=== PATIENT | male | born 1985 | race Caucasian/White ===

== ENCOUNTER 2024-05-18 08:00 | Emergency (ER) | payer OTHER, SELFPAY ==
[2024-05-18] VITALS (16 sets, daily range): BP systolic 135–142; BP diastolic 87–95; PULSE 69–90; TEMP 36.8; O2SAT 95–100; BMI 29.3
--- NOTE | 2024-05-18 08:19 | ECG_ITS ---
[facility] Test Date: 2024-05-18 Pat Name: ROBERT HEATH Department: Room: - Gender: Male Store Mgr: : 1985 Requested By: Order Number: [id number] Reading MD: BAM TOLLIVER Measurements Intervals [place] Rate: 71 P: 50 TN: 132 QRS: 92 QRSD: 120 T: 67 QT: 386 QTc: 409 Interpretive Statements 1100 Sinus rhythm 2320 Nonspecific intraventricular conduction delay 7102 Moderate right axis deviation 9130 borderline ECG No previous ECG available for comparison Electronically Signed On 05-18-2024 22:15:52 EDT by BAM TOLLIVER
--- NOTE | 2024-05-18 08:30 | ED.UPPEXIN1 ---
HPI HPI - Extremity Injury (Upper) General Chief Complaint: Extremity Injury, Upper Stated Complaint: BWC - UPPER EXTREMITY INJURY/PAIN R ARM Time Seen by Provider: 05/18/24 08:10 Source: patient Mode of arrival: walk-in Limitations: no limitations History of Present Illness HPI narrative: 38-year-old male presents after being shocked by electricity at work. He was using a power buffer and the extension cord became disconnected and his right hand got shocked. Apparently there was some wet floor nearby as well. He states he has tingling going up his arm and he has trouble bending his arm. No chest pain or palpitations and there is no syncope or other injury. This happened about an hour ago. Related Data Home Medications ?Medication ?Instructions ?Recorded ?Confirmed ergocalciferol (vitamin D2) 1,250 1,250 mcg PO QWEEK 05/18/24 05/18/24 mcg (50,000 unit) capsule hydroxyzine HCl 25 mg tablet 25 mg PO TID PRN anxiety 05/18/24 05/18/24 omeprazole 20 mg capsule,delayed 20 mg PO DAILY 05/18/24 05/18/24 release ondansetron 4 mg disintegrating 4 mg PO DAILY 05/18/24 05/18/24 tablet trazodone 50 mg tablet 50 mg PO DAILY PRN sleep 05/18/24 05/18/24 venlafaxine 150 mg 150 mg PO QAM 05/18/24 05/18/24 capsule,extended release 24 hr Allergies Allergy/AdvReac Type Severity Reaction Status Date / Time No Known Drug Allergies Allergy Verified 05/18/24 08:07 Opioid HPI Opioid Management Most Recent Pain and Opioid Data: No Data to Display Review of Systems ROS Narrative A ten point review of systems is negative except as noted above. Exam Narrative Exam Narrative: Nurses note and vital signs reviewed and patient is not hypoxic. General: The patient appears well and in no apparent distress. Patient is resting comfortably on cart. Skin: Warm, dry, no pallor noted. There is no rash noted. Head: Normocephalic, atraumatic Eye: Normal conjunctiva, no drainage Ears, Nose, Mouth, and Throat: oral mucosa is moist. Nares patent. Cardiovascular: Regular Rate and Rhythm Respiratory: Patient is in no distress, no accessory muscle use, lungs are clear to auscultation, no wheezing, rales or rhonchi Back: non-tender, no CVA tenderness bilaterally to percussion. GI: Normal bowel sounds, no tenderness to palpation, no masses appreciated. No rebound, guarding, or rigidity noted. Musculoskeletal: The right arm has no burn chawla or erythema. Fingers have good range of motion and he is reluctant to bend his elbow. There is no swelling in the arm. Neurological: A&O x4, normal speech Psychiatric: Cooperative Constitutional Vital Signs, click to edit/add: Last Vital Signs Temp 98.2 F 05/18/24 08:07 Pulse 90 05/18/24 09:07 Resp 18 05/18/24 09:07 BP 135/87 05/18/24 09:07 Pulse Ox 99 05/18/24 08:07 O2 Del Method Room Air 05/18/24 08:07 Course Vital Signs Vital signs: Vital Signs Temperature 98.2 F 05/18/24 08:07 Pulse Rate 83 05/18/24 08:07 Respiratory Rate 16 05/18/24 08:07 Blood Pressure 142/94 H 05/18/24 08:07 Pulse Oximetry 99 05/18/24 08:07 Oxygen Delivery Method Room Air 05/18/24 08:07 Temperature 98.2 F 05/18/24 08:07 Pulse Rate 90 05/18/24 09:07 Respiratory Rate 18 05/18/24 09:07 Blood Pressure 135/87 05/18/24 09:07 Pulse Oximetry 99 05/18/24 08:07 Oxygen Delivery Method Room Air 05/18/24 08:07 MDM - Extremity Injury (Upper) MDM Narrative Medical decision making narrative: The patient is feeling much better now and is able to move his arm without difficulty. EKG on my interpretation shows no acute findings and he has had no dysrhythmia and he is able to be discharged home. Treatment diagnosis and follow-up were discussed with the patient Differential Diagnosis Differential diagnosis: Likely other (Electric shock, dysrhythmia) ECG Data Attestation: I personally reviewed and interpreted this ECG as follows: (EKG on my interpretation shows sinus rhythm without acute change) Discharge Plan Discharge Stand Alone Forms: Portal Instructions Chief Complaint: Extremity Injury, Upper Clinical Impression: Electric shock Patient Disposition: Home, Self-Care Time of Disposition Decision: 10:13 Condition: Good Mode of Transportation: Private Vehicle Prescriptions / Home Meds: No Action omeprazole 20 mg capsule,delayed release(DR/EC) 20 mg PO DAILY ondansetron 4 mg tablet,disintegrating 4 mg PO DAILY ergocalciferol (vitamin D2) 1,250 mcg (50,000 unit) capsule 1,250 mcg PO QWEEK hydroxyzine HCl 25 mg tablet 25 mg PO TID PRN (Reason: anxiety) trazodone 50 mg tablet 50 mg PO DAILY PRN (Reason: sleep) venlafaxine 150 mg capsule,extended release 24hr 150 mg PO QAM Print Language: Arabic Instructions: Electrical [place] in Adults (ED) Referrals: Vandana Kelly NP [Primary Care Provider] - 1 week
== END 2024-05-18 10:34 | disposition home or self-care (01) ==
PROVIDERS: Emergency Provider Emergency Medicine; PCP Nurse Practitioner Family
DX: T75.4XXA Electrocution, initial encounter (principal); W86.8XXA Exposure to other electric current, initial encounter
CPT/HCPCS: 93005; 99283

== ENCOUNTER 2024-12-22 09:09 | Emergency (ER) | payer OTHER, SELFPAY ==
[2024-12-22 09:14] VITALS: BP 136/87; PULSE 85; TEMP 36.6; O2SAT 97; BMI 31.0
--- NOTE | 2024-12-22 09:22 | XR_ITS ---
The [address] [address] Patient Name: ROBERT LOGAN MRN: [id number] date: 1985 Sex: M Assigned Patient Location: ER Current Patient Location: ER Accession/Order Number: [id number] Exam Date: 12/22/2024 09:28 Report Date: 12/22/2024 09:46 At the request of: VENKAT MATUTE Procedure: XR lumbar spine 2-3V EXAMINATION: XR lumbar spine 2-3V HISTORY: fall COMPARISON: No relevant comparison available. FINDINGS: BONES: Straightening of the normal lordotic curvature, but otherwise normal height and alignment of the vertebral bodies; no fracture or spondylolisthesis. Mild degenerative facet arthropathy L3-4 through L5-S1. DISC SPACES: Moderate narrowing L4-5. PARASPINOUS: Negative. No paraspinous abnormality is seen. OTHER: Negative. XR/XR lumbar spine 2-3V IMPRESSION: 1. No appreciable acute abnormality. 2. L5-S1 moderate disc space narrowing/degenerative disc disease. Electronically authenticated by: CHAPINCITO ROBERTSON Date: 12/22/2024 09:46
--- NOTE | 2024-12-22 09:23 | ED.GENADUL1 ---
HPI HPI - General Adult General Chief complaint: Fall Stated complaint: FALL - WORK 12/22/24 HEAD/BACK PAIN Time Seen by Provider: 12/22/24 09:12 Source: patient Mode of arrival: walk-in Limitations: no limitations History of Present Illness HPI narrative: 39-year-old male presents to the emergency department for injury to his lower back. Just before coming into the emergency department he was at work and he slipped and he fell backwards and landed on his lower back and hit the back of his head. No LOC or vomiting or weakness or numbness. He has no neck pain. He landed on an area that had wax stripper applied to it and it got on his lower back through his clothing. He has a burning sensation in this area. Tetanus status is up-to-date. Related Data Home Medications ?Medication ?Instructions ?Recorded ?Confirmed ergocalciferol (vitamin D2) 1,250 1,250 mcg PO QWEEK 05/18/24 05/18/24 mcg (50,000 unit) capsule hydroxyzine HCl 25 mg tablet 25 mg PO TID PRN anxiety 05/18/24 05/18/24 omeprazole 20 mg capsule,delayed 20 mg PO DAILY 05/18/24 05/18/24 release ondansetron 4 mg disintegrating 4 mg PO DAILY 05/18/24 05/18/24 tablet trazodone 50 mg tablet 50 mg PO DAILY PRN sleep 05/18/24 05/18/24 venlafaxine 150 mg 150 mg PO QAM 05/18/24 05/18/24 capsule,extended release 24 hr Previous Rx's ?Medication ?Instructions ?Recorded triamcinolone acetonide 0.1 % 1 applic topical BID #80 grams 12/22/24 topical cream Allergies Allergy/AdvReac Type Severity Reaction Status Date / Time No Known Drug Allergies Allergy Verified 12/22/24 09:19 Opioid HPI Opioid Management Most Recent Opioid Data: Last Pain Scale 6 12/22/24 09:15 12/22/24 Review of Systems ROS Narrative A ten point review of systems is negative except as noted above. PFSH PFSH Social History Little interest or pleasure in doing things: not at all Feeling down, depressed, or hopeless: not at all Exam Narrative Exam Narrative: Nurses note and vital signs reviewed and patient is not hypoxic. General: The patient appears well and in no apparent distress. Patient is resting comfortably on cart. Skin: Warm, dry, no pallor noted. There is no rash noted. Head: Normocephalic, atraumatic; C-spine nontender Eye: Normal conjunctiva, no drainage Ears, Nose, Mouth, and Throat: oral mucosa is moist. Nares patent. Cardiovascular: Regular Rate and Rhythm Respiratory: Patient is in no distress, no accessory muscle use, lungs are clear to auscultation, no wheezing, rales or rhonchi Back: He has erythema bilaterally on his lower back, right greater than left. No blistering or open areas of skin GI: Soft and nontender Musculoskeletal: All extremity joints have full range of motion Neurological: A&O, normal speech Psychiatric: Cooperative Constitutional Vital Signs, click to edit/add: Last Vital Signs Temp 97.9 F 12/22/24 09:14 Pulse 85 12/22/24 09:14 Resp 20 12/22/24 09:14 BP 136/87 12/22/24 09:14 Pulse Ox 97 12/22/24 09:14 O2 Del Method Room Air 12/22/24 09:14 Course Vital Signs Vital signs: Vital Signs Temperature 97.9 F 12/22/24 09:14 Pulse Rate 85 12/22/24 09:14 Respiratory Rate 20 12/22/24 09:14 Blood Pressure 136/87 12/22/24 09:14 Pulse Oximetry 97 12/22/24 09:14 Oxygen Delivery Method Room Air 12/22/24 09:14 Temperature 97.9 F 12/22/24 09:14 Pulse Rate 85 12/22/24 09:14 Respiratory Rate 20 12/22/24 09:14 Blood Pressure 136/87 12/22/24 09:14 Pulse Oximetry 97 12/22/24 09:14 Oxygen Delivery Method Room Air 12/22/24 09:14 Medical Decision Making MDM Narrative Medical decision making narrative: X-rays of lumbar spine are negative per radiologist. Reexamination of his lower back at 10:10 AM shows the erythema to have decreased somewhat in intensity. He is prescribed steroid cream. Treatment diagnosis and follow-up were discussed with the patient. Differential Diagnosis Differential Diagnosis: Contusion, lumbar fracture Imaging Data Lumbar x-ray: Radiologist's impression: ITS Impressions Lumbar Spine X-Ray 12/22/24 09:22 IMPRESSION: 1. No appreciable acute abnormality. 2. L5-S1 moderate disc space narrowing/degenerative disc disease. Electronically authenticated by: CHAPINCITO ROBERTSON Date: 12/22/2024 09:46 Discharge Plan Discharge Chief Complaint: Fall Clinical Impression: Back contusion, Chemical dermatitis Patient Disposition: Home, Self-Care Time of Disposition Decision: 10:10 Condition: Good Mode of Transportation: Private Vehicle Prescriptions / Home Meds: New triamcinolone acetonide 0.1 % cream 1 applic topical BID Qty: 80 0RF No Action omeprazole 20 mg capsule,delayed release(DR/EC) 20 mg PO DAILY ondansetron 4 mg tablet,disintegrating 4 mg PO DAILY ergocalciferol (vitamin D2) 1,250 mcg (50,000 unit) capsule 1,250 mcg PO QWEEK hydroxyzine HCl 25 mg tablet 25 mg PO TID PRN (Reason: anxiety) trazodone 50 mg tablet 50 mg PO DAILY PRN (Reason: sleep) venlafaxine 150 mg capsule,extended release 24hr 150 mg PO QAM Print Language: Cameroonian Instructions: Contact Dermatitis (ED), Contusion in Adults (ED) Referrals: Vandana Kelly NP [Primary Care Provider] - 1 week
== END 2024-12-22 10:34 | disposition home or self-care (01) ==
PROVIDERS: Emergency Provider Emergency Medicine; PCP Nurse Practitioner Family
DX: S30.0XXA Contusion of lower back and pelvis, initial encounter (principal); W01.0XXA Fall on same level from slipping, tripping and stumbling without subsequent striking against object, initial encounter; L25.3 Unspecified contact dermatitis due to other chemical products
CPT/HCPCS: 72100; 99283